=== PATIENT | male | born 1950 | race Caucasian/White ===

== ENCOUNTER → 2018-02-16 | Outpatient (CLI) | payer MEDICARE, OTHER ==
[~2018-02-16] MED LIST: AVODART0.5 MG PO; CRESTOR10 MG PO; HYDROCHLOROTHIA25 MG PO; METOPROLOL SUCC50 MG PO; NIACIN500 M2 PO; TRICOR145 MG PO
== END ==
LOC: RESP 12:37
PROVIDERS: ATTEND Internal Medicine Cardiovascular Disease
DX: Z79.899 Other long term (current) drug therapy (principal)
CPT/HCPCS: 94010; 94727; 94729

== ENCOUNTER 2018-09-12 11:14 | Inpatient (IN) | payer MEDICARE, OTHER ==
[~2018-09-12] VITALS: Ht 172.7 cm; Wt 84.8 kg
[2018-09-12] VITALS (16 sets, daily range): BP systolic 72–127; BP diastolic 57–104
--- OUTSIDE RECORDS SUMMARY | 2018-09-12 11:16 | XMS REPORT ---
Author Author Michael Griffin Organization [employer] Address Unknown Phone Unavailable Care Team Providers Care Roll Forming Machine Set Up Mechanic Name Role Phone Michael Griffin CP Unavailable Allergies No Known Allergies Problems Problem Type Condition Code Onset Dates Condition Status Problem Abnormal stress electrocardiogram test using treadmill R94.39 Active Problem Benign hypertensive heart disease I11.9 Active Problem Palpitations R00.2 Active Problem Alcohol use Z78.9 Active Problem Family history of ischemic heart disease Z82.49 Active Problem Paroxysmal a-fib I48.0 Active Problem Breathlessness on exertion R06.09 Active Problem 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
--- OUTSIDE RECORDS SUMMARY | 2018-09-12 11:16 | XMS REPORT ---
Author Author Michael Griffin Organization [employer] Address Unknown Phone Unavailable Care Team Providers Care Sausage Maker Name Role Phone Michael Griffin CP Unavailable Allergies No Known Allergies Problems Problem Type Condition Code Onset Dates Condition Status Problem Hypercholesterolemia E78.01 Active Problem Tachycardia R00.0 Active Problem Benign hypertensive heart disease I11.9 Active Problem Paroxysmal a-fib I48.0 Active Problem Breathlessness on exertion R06.09 Active Problem Nonrheumatic tricuspid (valve) insufficiency I36.1 Active Problem Alcohol use Z78.9 Active Problem Precordial chest pain R07.2 Active Problem Atherosclerosis of [place] coronary artery of [place] heart without angina pectoris I25.10 Active Problem Abnormal stress electrocardiogram test using treadmill R94.39 Active Assessment Hypercholesterolemia E78.01 Active Assessment Paroxysmal a-fib I48.0 Active Problem Palpitations R00.2 Active Problem Family history of ischemic heart disease Z82.49 Active Medications Medication Code System Code Instructions Start Date End Date Status Dosage Gemfibrozil [facility] [id number] 600 MG Orally Twice a day Active 1 tablet Warfarin Sodium [facility] [id number] 3 MG Orally Once a day Active 1 tablet Results No Known Results Summary Purpose eClinicalWorks Submission
--- OUTSIDE RECORDS SUMMARY | 2018-09-12 11:16 | XMS REPORT ---
Author Author Michael Griffin Organization [employer] Address Unknown Phone Unavailable Care Team Providers Care Multimedia Journalist Name Role Phone Michael Griffin CP Unavailable [...] chest pain R07.2 Active Problem Atherosclerosis of [place] coronary artery of [place] heart without angina pectoris I25.10 Active Problem Abnormal stress electrocardiogram test using treadmill R94.39 Active Assessment Paroxysmal a-fib I48.0 Active Problem Palpitations R00.2 Active Problem Family history of ischemic heart disease Z82.49 Active Medications Medication Code System Code Instructions Start Date End Date Status Dosage Amiodarone HCl [facility] [id number] 200 MG Orally daily Active 1 tablet Results No Known Results Summary Purpose eClinicalWorks Submission
--- OUTSIDE RECORDS SUMMARY | 2018-09-12 11:16 | XMS REPORT ---
Author Author Michael Griffin Organization [employer] Address Unknown Phone Unavailable Care Team Providers Care Speed Winder Name Role Phone Michael Griffin CP Unavailable Allergies No Known Allergies Problems Problem Type Condition Code Onset Dates Condition Status Problem Family history of ischemic heart disease Z82.49 Active Problem Palpitations R00.2 Active Problem Abnormal stress electrocardiogram test using treadmill R94.39 Active Assessment Paroxysmal a-fib I48.0 Active Problem Alcohol use Z78.9 Active Problem Breathlessness on exertion R06.09 Active Problem Atherosclerosis of [place] coronary artery of [place] heart without angina pectoris I25.10 Active Problem Paroxysmal a-fib I48.0 Active Problem Tachycardia R00.0 Active Problem Benign hypertensive heart disease I11.9 Active Problem Hypercholesterolemia E78.01 Active Problem Precordial chest pain R07.2 Active Medications Medication Code System Code Instructions Start Date End Date Status Dosage Eliquis [facility] [id number] 5 MG PO twice a day (bid) May 03, 2017 Active 1 tablet Results No Known Results Summary Purpose eClinicalWorks Submission
--- OUTSIDE RECORDS SUMMARY | 2018-09-12 11:16 | XMS REPORT | Continuity of Care Document ---
Author Author [facility] Interface Address Unknown Phone Unavailable Problems Problem Status Onset Date Classification Date Reported Comments Source PARKINSON DISEASE Active 06/21/2018 [facility] Hypercholesterolemia Active Problem 08/03/2018 Michael Griffin Tachycardia Active Problem 08/03/2018 Michael Griffin Benign hypertensive heart disease Active Problem 08/03/2018 Michael Griffin Paroxysmal a-fib Active Problem 08/03/2018 Michael Griffin Breathlessness on exertion Active Problem 08/03/2018 Michael Griffin Nonrheumatic tricuspid insufficiency Active Problem 08/03/2018 Michael Griffin Alcohol use Active Problem 08/03/2018 Michael Griffin Precordial chest pain Active Problem 08/03/2018 Michael Griffin Atherosclerosis of [place] coronary artery of [place] heart without angina pectoris Active Problem 08/03/2018 Michael Griffin Abnormal stress electrocardiogram test using treadmill Active Problem 08/03/2018 Michael Griffin Palpitations Active Problem 08/03/2018 Michael Griffin Family history of ischemic heart disease Active Problem 08/03/2018 Michael Griffin PARKINSON'S DISEASE Active [facility] Medications Medication Details Route Status Patient Instructions Ordering Provider Order Date Source Eliquis 1 tablet PO Active 5 MG PO twice a day (bid) Gaby 05/03/2017 Michael Griffin Gemfibrozil 1 tablet twice a day orally 90 days PO Active 600 MG PO bid Gaby Griffin Warfarin Sodium 1 tablet Orally Active 3 MG Orally Once a day Gaby Griffin Amiodarone HCl 1 tablet Orally Active 200 MG Orally daily Gaby Griffin Allergies, Adverse Reactions, Alerts Substance Category Reaction Severity Reaction type Status Date Reported Comments Source Immunizations Immunization Date Given Site Status Last Updated Comments Source Results Order Name Results Value Reference Range Date Interpretation Comments Source Brain scan SPECT NM Brain scan SPECT NM EXAM: NM Brain Imaging SPECT DATE: 07/11/2018 at 1303 hours. INDICATION: -Movement disorder, evaluate for Parkinson disease COMPARISON: None. TECHNIQUE: After intravenous administration of 5 mCi of I-123 Ioflupane, delayed SPECT images of the head were obtained at 4 hours post injection. FINDINGS: Decreased tracer uptake in the bilateral posterior putamina is seen. Tracer uptake in the bilateral caudate head is still maintained. The right striatum contributes 49% and the left striatum 51% of the remaining dopamine transporters function. The remainder of tracer distribution in background brain parenchyma is within normal limits. IMPRESSION: The scan findings are suggestive of dysfunction of the dopamine transporters in bilateral posterior putamina, left greater than right, suggestive of Parkinson disease. 07/11/2018 - - This report was dictated by a Director Of Digital Platforms/Fellow/Physician Occupational Therapy Asst. I have personally reviewed the images as well as the interpretation and agree with the findings. Read by: Martin Jernigan MD Resident/Fellow/Physician Occupational Therapy Asst: Martin Jernigan MD Dictated Date/time: 07/11/18 16:30 Electronically Signed by: June Duffy MD 07/11/18 17:02 FINAL REPORT [facility] Vital Signs Vital Sign Value Date Comments Source Encounters Location Location Details Encounter Type Encounter Number Reason For Visit Attending Provider ADM Date DC Date Status Source Procedures Procedure Code Date Perfomer Comments Source
--- OUTSIDE RECORDS SUMMARY | 2018-09-12 11:16 | XMS REPORT ---
Author Author Michael Griffin Organization [employer] Address Unknown Phone Unavailable Care Team Providers Care Telephone Directory Distributor Driver Name Role Phone Michael Griffin CP Unavailable Allergies No Known Allergies Problems Problem Type Condition Code Onset Dates Condition Status Problem Hypercholesterolemia E78.01 Active Problem Tachycardia R00.0 Active Problem Benign hypertensive heart disease I11.9 Active Problem Palpitations R00.2 Active Problem Family history of ischemic heart disease Z82.49 Active Problem Paroxysmal a-fib I48.0 Active Problem Breathlessness on exertion R06.09 Active Problem Nonrheumatic tricuspid (valve) insufficiency I36.1 Active Problem Alcohol use Z78.9 Active Problem Precordial chest pain R07.2 Active Problem Atherosclerosis of [place] coronary artery of [place] heart without angina pectoris I25.10 Active Problem Abnormal stress electrocardiogram test using treadmill R94.39 Active Medications Medication Code System Code Instructions Start Date End Date Status Dosage Gemfibrozil [facility] [id number] 600 MG PO bid Active 1 tablet twice a day orally 90 days Results No Known Results Summary Purpose eClinicalWorks Submission
[2018-09-12] MEDS ORDERED: SODIUM CHLORIDE 0.9% 1000ML 1,000 ML IV STA ×2 (11:49→12:53)
--- NOTE | 2018-09-12 12:00 | NUR ---
Pt placed on O2 via NC, educated regarding A-fib w/RVR & increased O2 demand.
[2018-09-12 12:26] LABS: BASOPHILS % 0.6 % (0.0-1.0); LYMPHOCYTES # (AUTO) 0.3 (1.0-3.2); LYMPHOCYTES % 21.1 % (18.0-39.1); MEAN CORPUSCULAR HEMOGLOBIN 33.3 pg (28-32); MEAN CORPUSCULAR HGB CONC 33.6 g/dL (31-35); MEAN CORPUSCULAR VOLUME 99.3 fL (81-99); MONOCYTES # (AUTO) 0.7 (0.2-0.8); MONOCYTES % 42.9 % (4.4-11.3); NEUTROPHILS # (AUTO) 0.6 (2.1-6.9); NEUTROPHILS % 35.4 % (38.7-80.0); PLATELET COUNT 520 x10e3/uL (140-360); RED BLOOD COUNT 1.41 x10e6/uL (4.3-5.7); RED CELL DISTRIBUTION WIDTH 15.5 % (11.7-14.4)
[2018-09-12] MEDS ORDERED: PANTOPRAZOLE 40 MG 10ML VIAL IV ONE (12:30)
--- NOTE | 2018-09-12 12:35 | NUR ---
MD to bedside for rectal exam. Pt assisted to Lt lateral recumbent, procedure explained, understanding verbalized & agrees. Exam completed by MD. Cortes (-) per Dr. Veliz.
[2018-09-12 12:36] LABS: HEMOGLOBIN 4.7 g/dL (14.0-18.0)
[2018-09-12 12:45] LABS: INR 1.28; PROTHROMBIN TIME 17.1 seconds (11.9-14.5)
[2018-09-12 12:46] LABS: PARTIAL THROMBOPLASTIN TIME 34.8 seconds (23.8-35.5)
[2018-09-12] MEDS ORDERED: CARBIDOPA-LEVO1 EAC1 PO (12:48)
[2018-09-12] MEDS ORDERED: FINASTERIDE5 MG PO (12:48)
[2018-09-12] MEDS ORDERED: ONDANSETRON HCL4 MG PO (12:48)
[2018-09-12] MEDS ORDERED: GEMFIBROZIL600 MG PO (12:48)
[2018-09-12] MEDS ORDERED: PANTOPRAZOLE SO40 MG PO (12:49)
[2018-09-12 12:50] LABS: MAGNESIUM 1.9 MG/DL (1.3-2.1)
--- NOTE | 2018-09-12 12:50 | NUR ---
Updating pt & spouse regarding plan of care, including ICU admission & blood transfusion. Attempting to obtain signature for informed consent, upon discussing blood transfusion, pt denies being informed of risks, benefits & alternative measures for treatment of condition by MD. MD notified of need to inform pt prior to blood transfusion.
[2018-09-12] MEDS ORDERED: WARFARIN SODIUM3 MG PO (12:51)
--- NOTE | 2018-09-12 12:51 | Diagnostic Imaging Report ---
Examination: Single AP view of the chest. COMPARISON: None. INDICATION: Chest pain, unsteady gait DISCUSSION: The lungs are well-inflated. No focal airspace consolidation, pleural effusion, or pneumothorax. Mild prominence of the cardiac shadow and upper mediastinum is likely related to portable, AP technique. No overt pulmonary edema. No acute osseous abnormality. IMPRESSION: No acute cardiopulmonary abnormality. Signed by: Dr. Tom Douglass M.D. on 09/12/2018 12:47 PM
[2018-09-12 12:54] LABS: ALBUMIN 3.5 g/dL (3.5-5.0); ALKALINE PHOSPHATASE 107 IU/L (40-150); ANION GAP 19.9 mmol/L (8-16); BLOOD UREA NITROGEN 21 mg/dL (7-26); BUN/CREATININE RATIO 26 (6-25); CALCIUM 10.2 mg/dL (8.4-10.2); CARBON DIOXIDE 26 mmol/L (22-29); CHLORIDE 94 mmol/L (98-107); CREATINE KINASE 33 IU/L (30-200); CREATININE, SERUM 0.81 mg/dL (0.72-1.25); EST GLOMERULAR FILTRATION RATE > 60 ML/MIN (60-); GLUCOSE 122 mg/dL (74-118); SODIUM 137 mmol/L (136-145)
[2018-09-12 12:56] LABS: ALANINE AMINOTRANSFERASE < 6 IU/L (0-55); POTASSIUM 2.9 mmol/L (3.5-5.1)
[2018-09-12] MEDS ORDERED: VANCOMYCIN 1GM/NS 250 ML 250 ML IV ONE (13:00)
[2018-09-12] MEDS ORDERED: SODIUM CHLORIDE 0.9% 250ML 250 ML IV ONE (13:00)
--- NOTE | 2018-09-12 13:00 | NUR ---
Awaiting MD to speak with pt about blood transfusion.
[2018-09-12] MEDS ORDERED: AMIODARONE HCL 360MG 200 ML IV SCH ×2 (13:15→18:00)
[2018-09-12] MEDS ORDERED: AMIODARONE HCL 150MG 100 ML IV SCH (13:15)
[2018-09-12 13:18] LABS: THYROID STIMULATING HORMONE 1.145 uIU/mL (0.350-4.940)
[2018-09-12 13:21] LABS: BAND NEUTROPHILS % (MANUAL) 4 %; EOSINOPHILS % (MANUAL) 2 % (0-7); LYMPHOCYTES % (MANUAL) 27 % (19-48); MONOCYTES % (MANUAL) 38 % (3.4-9.0); NEUTROPHILS % (MANUAL) 28 % (40-74)
[2018-09-12 13:22] LABS: ANISOCYTOSIS SLIGHT; HYPOCHROMASIA SLIGHT; PLATELET ESTIMATE SLIGHTLY INCREASED; PLATELET MORPHOLOGY COMMENT NORMAL; RBC MORPHOLOGY COMMENT NORMAL
[2018-09-12] MEDS: CEFEPIME 2 GM/NS 0.9% 100 ML 100 ML IV SCH (13:30)
[2018-09-12] MEDS ORDERED: AMIODARONE 900MG 500 ML IV SCH ×2 (13:30→19:30)
[2018-09-12] MEDS ORDERED: POTASSIUM CHLORIDE 20 MEQ TAB CR PO ONE (14:30)
--- NOTE | 2018-09-12 14:30 | NUR ---
Awaiting MD to speak with pt regarding blood transfusion.
[2018-09-12] MEDS ORDERED: ONDANSETRON HCL INJ 2MG/ML 2ML 2 MG/ML VIAL IV PRN (14:45)
[2018-09-12] MEDS: POTASSIUM CHLORIDE 10MEQ/100ML 100 ML IV SCH ×3 (14:48→19:21)
--- NOTE | 2018-09-12 15:45 | NUR ---
Spouse leaving at this time. Reassurance provided. ICU room number & contact information provided.
--- NOTE | 2018-09-12 16:15 | NUR ---
Patient to Room 194; VSS and no acute distress noted. 1640 1st unit PRBCs started.
--- OUTSIDE RECORDS SUMMARY | 2018-09-12 16:26 | XMS REPORT ---
Author Author [facility] Address Unknown Phone Unavailable Care Team Providers Care Marketing Administrator Name Role Phone BLANCA Wilian FISHMAN Unavailable Unavailable Problems This patient has no known problems. Allergies, Adverse Reactions, Alerts This patient has no known allergies or adverse reactions. Medications This patient has no known medications. Results Test Description Test Time Test Comments Text Results Atomic Results Result Comments CHEST SINGLE (PORTABLE) 2018-09-12 12:43:00 [place] [id number] Patient Name: BALTA ABUM MR #: [id number] : 1950 Age/Sex: 68/M Req #: [id number] Adm Physician: Ordered by: SRAVANTHI RIOS MD Report #: [id number] Location: ER Room/Bed: Procedure: [id number] DX/CHEST SINGLE (PORTABLE) Exam Date: 09/12/18 Exam Time: 1110 REPORT STATUS: Signed Examination: Single AP view of the chest. TE RISON: None. INDICATION: Chest pain, unsteady gait DISCUSSION: The lungs are well-inflated. No focal airspace consolidation, pleural effusion, or pneumothorax. Mild prominence of the cardiac shadow and upper mediastinum is likely related to portable, AP technique. No overt pulmonary edema. No acute osseous abnormality. IMPRESSION: No acute cardiopulmonary abnormality. Signed by: Dr. Alba Leon M.D. on 09/12/2018 12:47 PM Dictated By: ALBA LEON MD 124 Transcribed By: LANDON on 09/12/181246 COPY TO: SRAVANTHI RIOS MD
--- NOTE | 2018-09-12 16:30 | NUR ---
Dr Jaime Griffin to bedside; patient alert, oriented, conversing supine in the bed.
[2018-09-12] MEDS ORDERED: DIGOXIN INJ 0.25 MG/ML 2 ML AMP IV NR (16:45)
[2018-09-12] MEDS ORDERED: DIGOXIN 0.25 MG TAB PO NR (16:45)
--- NOTE | 2018-09-12 17:08 | NUR ---
Dr Lui to bedside.
--- NOTE | 2018-09-12 17:12 | Consultation ---
DATE OF CONSULTATION: September 12, 2018 REASON FOR CONSULTATION: Atrial fibrillation. HISTORY: A 68-year-old gentleman with known paroxysmal atrial fibrillation, hypertension, hypercholesterolemia, coronary artery disease, family history of CAD and degenerative joint disease. Patient REPORT NOT COMPLETED, LENGTH 0:29 Job#: [id number] RI
[2018-09-12] MEDS ORDERED: FILGRASTIM 300 MCG/ML VIAL SC SCH (17:30)
[2018-09-12 17:51] LABS: FOLATE 4.3 ng/mL (7.0-15.4)
[2018-09-12] MEDS ORDERED: FILGRASTIM 480 MCG/0.8 ML SYRINGE SQ NR ×2 (18:00→21:00)
[2018-09-12] MEDS ORDERED: FUROSEMIDE INJ 10 MG/ML 2 ML VIAL ONE (18:26)
[2018-09-12] MEDS ORDERED: SODIUM CHLORIDE 0.9% 50ML 50 ML ONE (18:27)
[2018-09-12] MEDS ORDERED: IOPAMIDOL 370 MG/ML 200 ML INFUS..BTL INJ ONE (18:27)
[2018-09-12] MEDS ORDERED: FUROSEMIDE INJ 10 MG/ML 2 ML VIAL IV NR ×2 (18:45→19:00)
--- NOTE | 2018-09-12 19:04 | Diagnostic Imaging Report ---
EXAMINATION: CT of the abdomen and pelvis with contrast. TECHNIQUE: Helical CT images of the abdomen and pelvis were performed from the lung bases to the lesser trochanters after the intravenous administration of 150 cc of Isovue 300 and the oral administration of none. Coronal and sagittal reformatted images were obtained.Dose modulation, iterative reconstruction, and/or weight based adjustment of the mA/kV was utilized to reduce the radiation dose to as low as reasonably achievable. COMPARISON: None. CLINICAL HISTORY:Anemia, syncope DISCUSSION: ABDOMEN/PELVIS: LOWER THORAX:Heart enlarged. HEPATOBILIARY: No focal hepatic lesions. No intra-or extrahepatic biliary ductal dilation. The gallbladder is normal. SPLEEN: No splenomegaly. PANCREAS: No focal masses or ductal dilatation. ADRENALS: No adrenal nodules. KIDNEYS/URETERS: No hydronephrosis, stones, or solid mass lesions. PELVIC ORGANS/BLADDER: The bladder is normal. PERITONEUM/RETROPERITONEUM: No free air or fluid. LYMPH NODES: No intra-abdominal, retroperitoneal, pelvic or inguinal lymphadenopathy. VESSELS: Vascular calcifications. GI TRACT: Colonic diverticulosis without inflammatory change adjacent to the sigmoid. BONES AND SOFT TISSUE: No bony destructive lesions. No soft tissue abnormalities. IMPRESSION: Acute uncomplicated sigmoid diverticulitis Signed by: Dr. Faustino Kauffman M.D. on 09/12/2018 7:01 PM
--- NOTE | 2018-09-12 19:30 | NUR ---
Received patient alert , on the second unit of blood, pending 1 more unit. on amiodarone drip and potassium chloride supplementation. Vitals stable
[2018-09-12] MEDS: METOPROLOL TARTRATE 25 MG TAB PO SCH (19:31)
--- NOTE | 2018-09-12 20:18 | NUR ---
Bedside report to HANNAH Gibson.
--- NOTE | 2018-09-12 20:49 | Consultation ---
DATE OF CONSULTATION: September 12, 2018 CARDIAC CONSULTATION REASON FOR THE CONSULTATION: Atrial fibrillation. HISTORY: [id number] gentleman who is known with paroxysmal atrial fibrillation, hypertension, hypercholesterolemia, coronary artery disease, family history of CAD, and degenerative joint disease. Patient since May 2017 on warfarin, amiodarone, and beta kayla. Subsequently, he was seen by EP. We discussed Watchman device with him several times. Regardless, patient is maintained on medical therapy and he seems to be doing well. Regarding his coronary artery disease, he denied having any active cardiovascular system complaints. He was doing well on his treatment and his medication. He came to our office for evaluation and he was relatively stable, his INR was therapeutic, and he denied having any hematemesis, any melena. Patient advised to keep followup with his PCP and to have his labs drawn since we did not have lab on him for sometime. In our office, we noted he is probably a little bit pale. He is supposed to see his doctor and have his lab drawn. However, patient complained of nausea for the last couple of weeks and poor appetite and he was worried about it, he was seen by Dr. Kinney where he scheduled him for EGD today. Today, patient felt not easy, very weak, and he felt palpitation. He came to the emergency room. He was in atrial fibrillation with fast ventricular response. His lab work showed WBC of only 1.6, hemoglobin of 4.7, hematocrit 14% and monocyte of 43%. He was admitted to intensive care unit. Cardiac consultation is obtained. I visited the patient. His main symptoms were a little bit nauseated, no melena, no hematemesis, no energy, and generalized weakness. HOME MEDICATIONS: Patient is on Crestor 40 mg a day, gemfibrozil 600 mg twice a day, niacin 1500 mg daily, metoprolol succinate 50 mg a day, finasteride 5 mg a day, Protonix 40 mg a day, topiramate 25 mg twice a day, Sinemet 25 per 100 one tablet at bedtime. ALLERGIES: NONE. PAST MEDICAL HISTORY: 1. Paroxysmal atrial fibrillation, diagnosed in 2016. 2. Cardiac catheterization in August 2015 with moderate LAD, OM, and right coronary artery. FFR was negative. 3. Hypertension. 4. Hypercholesteremia. 5. Borderline diabetes mellitus. 6. Diverticulosis. 7. Prostate problem. 8. Degenerative joint disease of the left shoulder. 9. Back pain. 10. Paroxysmal atrial fibrillation, latest documented atrial fibrillation in May 2017. 11. Right eye macular degeneration. 12. Parkinson's disease. 13. Tonsillectomy in 1950. SOCIAL HISTORY: He is . He stopped smoking many years ago. He drinks 2 to 3 drinks per day. REVIEW OF SYSTEMS: GENERAL: Weakness, failure to thrive, no energy. HEENT: Occasional headache, decreased right eye vision secondary to macular degeneration, decreased hearing in the left ear. PULMONARY: Easy fatigability and shortness of breath on exertion. CARDIAC: No angina. Weakness, debility. GI: Occasional heartburn, nausea. No hematemesis, no melena. HEMATOLOGY: No easy bruising or bleeding. : No hematuria, no dysuria. MUSCULOSKELETAL: Left leg ache and pain. NEUROLOGICAL: No headache, tremors. No localized weakness. FAMILY HISTORY: Mother of car accident at age 49. Father in his 90s, he had bypass surgery at age 62. Strong family history of coronary artery disease with several brothers having heart disease in their 50s and 60s. PHYSICAL EXAMINATION: GENERAL: Well-built gentleman, chronically ill. He looks very pale. VITAL SIGNS: Height of 5 feet 8 inches. Weight of 186 pounds. Blood pressure 130/80. Heart rate of 70. Respiratory rate of 18. HEENT: Patient looks very pale. NECK: No elevation of jugular venous pulsation. CHEST: Clear to auscultation and percussion. HEART: Irregularly irregular rate of atrial fibrillation with fast ventricular response. PMI in fifth left intercostal space. Normal first and second heart sounds. ABDOMEN: Soft with no organomegaly. EXTREMITIES: No cyanosis, no clubbing, no edema. NEUROLOGICAL: Awake, alert, oriented. LAB DATA: EKG showing atrial fibrillation with rapid ventricular response. INR of only 1.3. White blood cell count of 1.6, hemoglobin 4.7, hematocrit 14%. Differential monocyte at 43%. IMPRESSION AND PLAN: 1. Anemia. 2. Paroxysmal atrial fibrillation. 3. Coronary artery disease. 4. Hypertension. 5. Hypercholesteremia. Cardiac-salazar, my recommendation will be as follows: 1. Patient started on amiodarone intravenously in the ER, which will continue. 2. Adding beta kayla to his medical regimen. 3. Observing his vital signs and volume status. 4. We discussed the case with Dr. Mcallister. Will consult hematology to evaluate his anemia. Case discussed with the patient and explained, discussed with the staff. Patient seen in emergency room. Job#: [id number]
[2018-09-12] MEDS: FINASTERIDE 5 MG TAB PO SCH (21:00)
[2018-09-12] MEDS: CARBIDOPA/LEVODOPA 25/100 TAB PO SCH (21:00)
[2018-09-12] MEDS ORDERED: SODIUM CHLORIDE 0.9% 250ML 250 ML ONE (21:19)
[2018-09-13] VITALS (31 sets, daily range): BP systolic 93–136; BP diastolic 55–102
[2018-09-13] MEDS: METOPROLOL TARTRATE 25 MG TAB PO SCH ×2 (01:00→06:00)
--- NOTE | 2018-09-13 01:01 | NUR ---
Received patient in bed, AAO, vitals stable, blood pressures still above 170 despite hydralazine. No complaints raised Addendum: 09/13/18 at 0103 by VALERIE JIMÉNEZ RN notes for 1929 Addendum: 09/13/18 at 0104 by VALERIE JIMÉNEZ RN notes written on the wrong patient
[2018-09-13] MEDS ORDERED: SODIUM CHLORIDE 0.9% 0 ML ONE (01:23)
[2018-09-13] MEDS: CEFEPIME 2 GM/NS 0.9% 100 ML 100 ML IV SCH ×2 (01:30→13:46)
[2018-09-13 03:33] LABS: CREATINE KINASE MB 0.7 ng/mL (0-5.0)
[2018-09-13 04:54] LABS: EOSINOPHILS % 1.3 % (0.0-6.0); HEMATOCRIT 22.9 % (38.2-49.6); HEMOGLOBIN 7.8 g/dL (14.0-18.0); LYMPHOCYTES # (AUTO) 0.5 (1.0-3.2); LYMPHOCYTES % 14.8 % (18.0-39.1); MEAN CORPUSCULAR HEMOGLOBIN 31.1 pg (28-32); MEAN CORPUSCULAR HGB CONC 34.1 g/dL (31-35); MEAN CORPUSCULAR VOLUME 91.2 fL (81-99); MONOCYTES # (AUTO) 1.1 (0.2-0.8); MONOCYTES % 37.5 % (4.4-11.3); NEUTROPHILS # (AUTO) 1.4 (2.1-6.9); NEUTROPHILS % 44.4 % (38.7-80.0); PLATELET COUNT 350 x10e3/uL (140-360); RED BLOOD COUNT 2.51 x10e6/uL (4.3-5.7); RED CELL DISTRIBUTION WIDTH 18.3 % (11.7-14.4)
[2018-09-13 05:05] LABS: ALANINE AMINOTRANSFERASE 6 IU/L (0-55); ALBUMIN 2.9 g/dL (3.5-5.0); ALKALINE PHOSPHATASE 118 IU/L (40-150); ANION GAP 17.2 mmol/L (8-16); BLOOD UREA NITROGEN 18 mg/dL (7-26); BUN/CREATININE RATIO 24 (6-25); CALCIUM 9.1 mg/dL (8.4-10.2); CARBON DIOXIDE 23 mmol/L (22-29); CHLORIDE 98 mmol/L (98-107); CHOL/HDL RATIO 2.8 (3.9-4.7); CHOLESTEROL 95 MD/DL (0-199); CREATININE, SERUM 0.74 mg/dL (0.72-1.25); EST GLOMERULAR FILTRATION RATE > 60 ML/MIN (60-); GLUCOSE 103 mg/dL (74-118); HDL CHOLESTEROL 34 MG/DL (40-60); LDL CHOLESTEROL 29 MG/DL (60-130); POTASSIUM 3.2 mmol/L (3.5-5.1); SODIUM 135 mmol/L (136-145); TRIGLYCERIDES 159 MG/DL (0-149)
--- NOTE | 2018-09-13 07:00 | NUR ---
Potassium 3.2, received orders from Dr Mcallister to give potassium
--- NOTE | 2018-09-13 07:00 | NUR ---
bedside report recvd. assessment completed and recorded. vss and recorded. pt verbalizes understanding and consent to current poc.
--- NOTE | 2018-09-13 07:05 | NUR ---
Patient handed over stable
[2018-09-13] MEDS ORDERED: POTASSIUM CHLORIDE 20MEQ/100ML 200 ML IV ONE (07:15)
--- NOTE | 2018-09-13 07:30 | History and Physical ---
PRIMARY CARE PHYSICIAN: Dr. Yates CHIEF COMPLAINT: Leg weakness, dizziness and fatigue. HISTORY OF PRESENT ILLNESS: This is a 68-year-old man with a history of atrial fibrillation, on anticoagulation, who held his anticoagulants in the last 5 days for planned GI endoscopy. Also, his amiodarone had been discontinued. Now, the patient is feeling quite weak, dizzy and came to the hospital. Was found to have severe anemia, as well as pancytopenia. Patient was found to have rapid ventricular rate and in AFib. He is admitted for further evaluation and management. PAST MEDICAL HISTORY: Atrial fibrillation, Parkinson disease, BPH, peripheral edema, hypertriglyceridemia, diverticulosis, former cigarette smoker. PAST SURGICAL HISTORY: None. ALLERGIES: PER ELECTRONIC MEDICAL RECORD. FAMILY/SOCIAL HISTORY: Patient is . No cigarettes or illicits. He drinks about 1 alcoholic beverage per day. Family history of heart disease, premature coronary artery disease and myocardial infarction in his brother at age 21. Patient has 5 children. He quit cigarettes in 1994. 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 MEDICATIONS: Per electronic medical record. REVIEW OF SYSTEMS: Denies any fever, chills, sweats, nausea, vomiting, diarrhea, headache, chest pain, shortness of breath, back pain, skin rash, vision changes. PHYSICAL EXAMINATION VITAL SIGNS: Have been reviewed. GENERAL: A tired-appearing man resting in bed. HEENT: Anicteric. CARDIOVASCULAR: Normal S1 and S2. He has an irregular heart rate. LUNGS: Moderate breath sounds. ABDOMEN: Soft, nontender and nondistended. EXTREMITIES: He has trace edema. SKIN: Dry. PSYCHIATRIC: Flat affect. NEUROLOGICAL: Alert and oriented times 3. Moving all extremities. LABS: Reviewed. MEDICATIONS: Reviewed. ASSESSMENT: This is a 68-year-old man with: 1. Severe anemia and leukopenia. 2. Hypokalemia. 3. Hyperbilirubinemia. 4. Sigmoid diverticulitis. 5. Atrial fibrillation with rapid ventricular response. 6. Parkinson disease. 7. BPH. 8. Former smoker. 9. Hypertension. 10. Hyperlipidemia. PLAN 1. He is status post 3 units of packed red blood cells. 2. He is status post Neupogen. 3. Continue prophylaxis with cefepime in the setting of neutropenia. 4. He is on amiodarone for atrial fibrillation and also on metoprolol. 5. He did receive a dose of vancomycin, and his potassium was also replaced. 6. All his cell counts have started to improve. 7. Replace potassium this morning again. 8. Follow up labs and recommendations. 9. Monitor closely in the ICU. 10. Prophylaxis. Will use SCD and Pepcid. Critical care time more than 35 minutes. Job#: [id number] RI
[2018-09-13 07:57] LABS: BAND NEUTROPHILS % (MANUAL) 5 %; EOSINOPHILS % (MANUAL) 3 % (0-7); LYMPHOCYTES % (MANUAL) 14 % (19-48); MONOCYTES % (MANUAL) 38 % (3.4-9.0); NEUTROPHILS % (MANUAL) 37 % (40-74); NUCLEATED RED BLOOD CELLS 2
[2018-09-13 07:58] LABS: ANISOCYTOSIS MODERATE; HYPOCHROMASIA SLIGHT; MICROCYTOSIS SLIGHT; PLATELET ESTIMATE ADEQUATE; PLATELET MORPHOLOGY COMMENT NORMAL; RBC MORPHOLOGY COMMENT ABNORMAL
[2018-09-13] MEDS: CARBIDOPA/LEVODOPA 25/100 TAB PO SCH ×3 (08:12→21:09)
[2018-09-13] MEDS: FAMOTIDINE 20 MG TAB PO SCH (08:12)
--- NOTE | 2018-09-13 08:32 | NUR ---
rebecca randall, updated on pt status, orders recvd and being completed.
[2018-09-13] MEDS: METOPROLOL SUCCINATE 50 MG TAB XL PO SCH (09:00)
[2018-09-13] MEDS ORDERED: GEMFIBROZIL 600 MG TAB PO SCH (09:00)
--- NOTE | 2018-09-13 09:00 | NUR ---
bedside bone biopsy completed. tolerates well.
[2018-09-13] MEDS: AMIODARONE HCL 200 MG TAB PO SCH ×2 (10:48→17:28)
[2018-09-13] MEDS: DOCUSATE SODIUM 100 MG CAP PO SCH ×2 (10:48→17:28)
--- NOTE | 2018-09-13 11:29 | NUR ---
bedside report given to oncoming nurse
[2018-09-13 11:44] LABS: CREATINE KINASE MB 0.8 ng/mL (0-5.0)
--- NOTE | 2018-09-13 14:32 | NUR ---
Nutrition Screen Note RD Recommendation for Physician: -Continue cardiac diet as ordered Plan of Care: RD following, monitoring for tolerance and adequacy Nutrition reason for involvement: RN consult no reason stated Primary Diagnose(s): Anemia PMH: Atrial fibrillation, Parkinson disease, BPH, peripheral edema, hypertriglyceridemia, diverticulosis, former cigarette smoker. Ht: 68in Wt: 185lb BMI: 28.1kg/m2 IBW: 154lb RD Assessment: (09/13) Chart reviewed. Labs and meds reviewed. 68yo M, who was admitted for anemia. 4 units of blood were transfused. Pending bone marrow biopsy today. K was repleted. Visited pt in the room. Pt reported decreased meal intake due to nausea and ~10lbs weight loss within the last 2 months. No sign of muscle/ fat loss upon NFPA. Appetite has improved since admission. Pt was able to finish >50% of his meal for lunch today. Pt was not interested in any ONS and happy that he has lost weight. LBM 09/11, laxative was given. No chewing or swallowing difficulty reported. Will continue to monitor and follow. Current Diet: cardiac diet Malnutrition Evaluation (09/13/2018) The patient does not meet criteria for a specified degree of malnutrition at this time. Will re-evaluate at follow-up as appropriate. Diet Education Needs Assessment: Diet education not indicated. Nutrition Care Level: low Signed: Dayanna Lorenz, MS, RD, LD
--- NOTE | 2018-09-13 14:46 | NUR ---
CASE MANAGEMENT INITIAL ASSESSMENT Backend Java Developer to bedside to discuss plan of care with patient/family. CM/SW role and care transitions discussed. Anticipated discharge plan discussed along with duration of care. CM/SW discussed patients right to make decisions in care. CM/SW work hours given. Patient lives: HOME IN [place], [place] W Admit/Transfer: ER W C/O DIZZINESS AND COULD NOT WALK Hospital/ER visits since last admit: LAST ADM 3 YRS AGO POA/Emergency contact: HUMBERTO BAUM / @ [phone] Current/Previous Home Health: NONE PCP/Follow-up Care: ALBA JULIEN MD Current/Previous DME: NONE Other Services: NONE Employment Status: RETIRED / WORKED IN [employer] Areas of Concerns: NONE Referral Needs: NONE AT THIS TIME Education Needs: EDUCATED AND PT ABOUT HOME HEALTH, DISCUSSED [facility] PART A AND B. IMM/THOMSON given and signed (if applicable): SIGNED 09/12/18 Goal for discharge: RETURN HOME CM/SW left business card at the bedside with contact information. Name and number was also written on the patients whiteboard. Patient verbalized understanding of discussion. CM will follow-up with ongoing discharge and transition of care needs.
[2018-09-13 15:23] LABS: FERRITIN 2983.48 ng/mL (21.81-274.66)
--- NOTE | 2018-09-13 15:48 | Consultation ---
DATE OF CONSULTATION: September 13, 2018 GASTROENTEROLOGY CONSULTATION CONSULTING PHYSICIAN: Bahman Veliz MD REASON FOR CONSULTATION: Acute anemia. HISTORY OF PRESENT ILLNESS: A 68-year-old very pleasant white male with a past medical history of atrial fibrillation, on warfarin, who also has developed acute progressive anemia in the last 1 month. He was seen by my associate, Dr. Kinney. He was supposed to have a upper endoscopy yesterday. However, he continued to feel very weak, lethargic, tired, was easily getting winded with minimal exertion. Instead of getting the upper endoscopy yesterday, he decided to come to the emergency room. Here his hemoglobin was noted at 4.7. He was subsequently admitted in the ICU. He received 3 units of packed red blood cells with which hemoglobin has gone up to 7.8. Patient's MCV on initial blood draw was 99.3. He reports no episode of hematemesis, melena, hematochezia, epistaxis, hematuria, or any hemoptysis. Patient has not seen any dark colored stool in the recent or remote past. No prior history of peptic ulcer disease. He seldom takes any NSAIDs. His warfarin was withheld due to scheduled endoscopy yesterday. INR was noted at 1.28 here. The patient has been seen by hematology service. He had undergone bone marrow biopsy today. REVIEW OF SYSTEMS: A 12-point system reviewed. Symptomatology is limited as per HPI. PAST MEDICAL HISTORY: Atrial fibrillation, Parkinson disease, benign prostatic hypertrophy, hypertriglyceridemia, diverticulosis. PAST SURGICAL HISTORY: None. SOCIAL HISTORY: Social drinker. He quit smoking in 1994. . Lives with his . FAMILY HISTORY: Positive for coronary artery disease. Negative for any TRAILER CHIEF cancer. ALLERGIES: NO KNOWN DRUG ALLERGIES. HOME MEDICATIONS: Carbidopa/levodopa, finasteride, gemfibrozil, metoprolol, niacin, Zofran, pantoprazole, warfarin. INPATIENT MEDICATIONS: List reviewed as per SEP. PHYSICAL EXAMINATION VITAL SIGNS: Temperature 98.1, pulse 89, respiration 18, blood pressure 102/64, oxygen saturation 100% on room air. GENERAL: Gross pallor. Not in any acute distress. Oral mucosa is moist. Anicteric sclerae. NECK: No neck or axillary adenopathy. CV: S1 and S2 irregularly irregular with a 3/6 flow murmur at the apex. LUNGS: Bilaterally grossly clear. ABDOMEN: Soft, nondistended and nontender. No palpable mass or hernia. Positive bowel sounds. EXTREMITIES: Bilateral trace pitting leg edema. LABS: WBC 3.04, hemoglobin 7.8 (has come up from 4.7), hematocrit 22.9, MCV 91.2, and platelet count 350,000. Sodium 135, potassium 3.2, chloride 98, bicarbonate 23, BUN 18, creatinine 0.74. Liver enzymes showed a total bilirubin of 1.3, AST 23, ALT 6, alkaline phosphatase 118. PT 17.[address] of the abdomen and pelvis with contrast showed acute uncomplicated sigmoid diverticulitis. IMPRESSION 1. Acute symptomatic normocytic anemia: No evidence of any gross gastrointestinal bleeding. On warfarin for antral fibrillation. INR subtherapeutic. He has had 3 colonoscopies in his life so far. Last colonoscopy was done in 2017. Patient is not able to recall the finding of last colonoscopy. 2. Acute radiological sigmoid diverticulitis: On exam, the patient does not have any elicitable left lower quadrant tenderness. PLAN: Check his stool for hemoccult blood. Iron profile in the initial blood draw. This can be added in the blood drawn on admission. Patient has already received blood transfusion. Therefore, performing iron profile study now will be erroneous. Hematology is following the patient. Patient most likely having normocytic anemia. Do not suspect GI source of blood loss contributing to the anemia. Warfarin can be resumed from GI standpoint. I thank Dr. Veliz for allowing me to participate in the care of this patient. Job#: [id number] SHARLENE
[2018-09-13] MEDS: FINASTERIDE 5 MG TAB PO SCH (21:09)
[2018-09-14] VITALS (11 sets, daily range): BP systolic 93–118; BP diastolic 59–81
[2018-09-14] MEDS: CEFEPIME 2 GM/NS 0.9% 100 ML 100 ML IV SCH ×2 (01:47→12:26)
[2018-09-14] MEDS: METOPROLOL SUCCINATE 50 MG TAB XL PO SCH (02:43)
[2018-09-14 05:00] LABS: BASOPHILS % 1.2 % (0.0-1.0); EOSINOPHILS # (AUTO) 0.1 (0.0-0.4); EOSINOPHILS % 3.3 % (0.0-6.0); HEMATOCRIT 22.8 % (38.2-49.6); HEMOGLOBIN 7.6 g/dL (14.0-18.0); LYMPHOCYTES # (AUTO) 0.6 (1.0-3.2); LYMPHOCYTES % 18.1 % (18.0-39.1); MEAN CORPUSCULAR HEMOGLOBIN 30.6 pg (28-32); MEAN CORPUSCULAR HGB CONC 33.3 g/dL (31-35); MEAN CORPUSCULAR VOLUME 91.9 fL (81-99); MONOCYTES # (AUTO) 1.3 (0.2-0.8); MONOCYTES % 38.4 % (4.4-11.3); NEUTROPHILS # (AUTO) 1.3 (2.1-6.9); NEUTROPHILS % 38.7 % (38.7-80.0); PLATELET COUNT 299 x10e3/uL (140-360); RED BLOOD COUNT 2.48 x10e6/uL (4.3-5.7); RED CELL DISTRIBUTION WIDTH 18.6 % (11.7-14.4)
[2018-09-14 05:23] LABS: ALANINE AMINOTRANSFERASE 9 IU/L (0-55); ALBUMIN 2.8 g/dL (3.5-5.0); ALKALINE PHOSPHATASE 112 IU/L (40-150); ANION GAP 14.2 mmol/L (8-16); BLOOD UREA NITROGEN 15 mg/dL (7-26); BUN/CREATININE RATIO 24 (6-25); CALCIUM 9.2 mg/dL (8.4-10.2); CARBON DIOXIDE 25 mmol/L (22-29); CHLORIDE 100 mmol/L (98-107); CREATININE, SERUM 0.62 mg/dL (0.72-1.25); EST GLOMERULAR FILTRATION RATE > 60 ML/MIN (60-); GLUCOSE 87 mg/dL (74-118); MAGNESIUM 1.4 MG/DL (1.3-2.1); POTASSIUM 3.2 mmol/L (3.5-5.1); SODIUM 136 mmol/L (136-145)
--- NOTE | 2018-09-14 06:17 | NUR ---
Called MD Modesto Mcallister to notify of labs, stated that he will be in ICU shortly.
[2018-09-14 06:18] LABS: CLARITY,URINE CLEAR (CLEAR); COLOR,URINE YELLOW (YELLOW)
[2018-09-14 06:19] LABS: KETONES,URINE NEGATIVE (NEGATIVE); LEUKOCYTE ESTERASE ,URINE NEGATIVE (NEGATIVE); NITRITE,URINE NEGATIVE (NEGATIVE); PROTEIN,URINE DIPSTICK 1+ (NEGATIVE)
[2018-09-14 06:20] LABS: BILIRUBIN,URINE NEGATIVE (NEGATIVE); URINE UROBILINOGEN 1 mg/dL (0.2 - 1)
--- NOTE | 2018-09-14 06:29 | NUR ---
REVIEW OF SYSTEMS: Denies any fever, chills, sweats, nausea, vomiting, diarrhea, headache, chest pain, shortness of breath, back pain, skin rash, vision changes. PHYSICAL EXAMINATION VITAL SIGNS: Have been reviewed. GENERAL: A tired-appearing man resting in bed. HEENT: Anicteric. CARDIOVASCULAR: Normal S1 and S2. He has an irregular heart rate. LUNGS: Moderate breath sounds. ABDOMEN: Soft, nontender and nondistended. EXTREMITIES: He has trace edema. SKIN: Dry. PSYCHIATRIC: Flat affect. NEUROLOGICAL: Alert and oriented times 3. Moving all extremities. LABS: Reviewed. MEDICATIONS: Reviewed. ASSESSMENT: This is a 68-year-old man with: 1. Severe anemia and leukopenia. 2. Hypokalemia. 3. Hyperbilirubinemia. 4. Sigmoid diverticulitis. 5. Atrial fibrillation with rapid ventricular response. 6. Parkinson disease. 7. BPH. 8. Former smoker. 9. Hypertension. 10. Hyperlipidemia. PLAN 1. He is status post 3 units of packed red blood cells. 2. He is status post Neupogen. 3. Continue prophylaxis with cefepime in the setting of neutropenia. 4. He is on amiodarone for atrial fibrillation and also on metoprolol. 5. He did receive a dose of vancomycin, and his potassium was also replaced. 6. All his cell counts have started to improve. 7. Replace potassium this morning again. 8. Follow up labs and recommendations. 9. Monitor closely in the ICU. 10. Prophylaxis. Will use SCD and Pepcid. Critical care time more than 35 minutes. 09/14 cont AV kayla; f/u blood counts; Sean Mcallister MD, PhD.
[2018-09-14] MEDS ORDERED: POTASSIUM CHLORIDE 20 MEQ TAB CR PO STA ×2 (06:30→06:42)
[2018-09-14 06:31] LABS: BACTERIA,URINE RARE /HPF; RBC,URINE 0-5 /HPF (0-5); WBC,URINE (MAN) 0-5 /HPF (0-5)
[2018-09-14 06:32] LABS: EPITHELIAL CELLS,URINE RARE /LPF; TRANSITIONAL EPI CELLS,URINE RARE
[2018-09-14] MEDS: MAGNESIUM OXIDE 400 MG TAB PO SCH ×3 (06:51→16:21)
[2018-09-14] MEDS: DOCUSATE SODIUM 100 MG CAP PO SCH ×2 (08:11→16:21)
[2018-09-14] MEDS: CARBIDOPA/LEVODOPA 25/100 TAB PO SCH ×3 (08:12→21:08)
[2018-09-14] MEDS: AMIODARONE HCL 200 MG TAB PO SCH ×2 (08:12→16:01)
[2018-09-14] MEDS: FAMOTIDINE 20 MG TAB PO SCH (08:12)
[2018-09-14 10:32] LABS: BAND NEUTROPHILS % (MANUAL) 6 %; EOSINOPHILS % (MANUAL) 1 % (0-7); LYMPHOCYTES % (MANUAL) 26 % (19-48); MONOCYTES % (MANUAL) 39 % (3.4-9.0); NEUTROPHILS % (MANUAL) 28 % (40-74)
[2018-09-14 10:34] LABS: ANISOCYTOSIS SLIGHT; PLATELET ESTIMATE ADEQUATE; PLATELET MORPHOLOGY COMMENT NORMAL; RBC MORPHOLOGY COMMENT NORMAL
--- NOTE | 2018-09-14 13:15 | NUR ---
patients INR 1.2, ok to start coumadin 2.5 mg po today and repeat INR in am per
[2018-09-14] MEDS: WARFARIN SOD 2.5 MG TAB PO SCH (16:01)
[2018-09-14] MEDS ORDERED: DOCUSATE SODIUM 100 MG CAP PO PRN (16:30)
[2018-09-14] MEDS ORDERED: WARFARIN SOD 2.5 MG TAB PO SCH (17:00)
--- NOTE | 2018-09-14 19:55 | NUR ---
PATIENT RESTING IN BED WITHOUT RESPIRATORY DISTRESS, HE DENIES PAIN. 2+ PITTING EDEMA TO THE LEFT LEG, ATTEMPTED TO ELEVATE THE LEG ON PILLOW BUT THE PATIENT REFUSED THE PILLOW. SKIN IS PALE, NO ACTIVE BLEEDING OBSERVED. CALL LIGHT WITHIN EASY REACH, INSTRUCTED TO CALL FOR ASSISTANCE NEEDED.
[2018-09-14] MEDS: FINASTERIDE 5 MG TAB PO SCH (21:08)
[2018-09-15] VITALS (7 sets, daily range): BP systolic 96–113; BP diastolic 64–84
--- NOTE | 2018-09-15 00:13 | NUR ---
PATIENT IS ASLEEP, HE'S EASY TO AROUSE. HE DENIES PAIN, NO RESPIRATORY DISTRESS OBSERVED. CALL LIGHT WITHIN EASY REACH, INSTRUCTED TO CALL FOR ASSISTANCE NEEDED.
[2018-09-15] MEDS: CEFEPIME 2 GM/NS 0.9% 100 ML 100 ML IV SCH ×2 (01:45→17:16)
--- NOTE | 2018-09-15 04:50 | NUR ---
PATIENT CONDITION REMAINS STABLE WITHOUT DISTRESS, HE DENIES PAIN. CALL LIGHT WITHIN EASY REACH, INSTRUCTED TO CALL FOR ASSISTANCE NEEDED.
[2018-09-15 05:17] LABS: INR 1.05; PROTHROMBIN TIME 14.7 seconds (11.9-14.5)
[2018-09-15 06:26] LABS: BASOPHILS # (AUTO) 0.1 (0.0-0.1); EOSINOPHILS # (AUTO) 0.1 (0.0-0.4); EOSINOPHILS % 4.3 % (0.0-6.0); HEMATOCRIT 23.7 % (38.2-49.6); HEMOGLOBIN 7.7 g/dL (14.0-18.0); LYMPHOCYTES # (AUTO) 0.8 (1.0-3.2); MEAN CORPUSCULAR HEMOGLOBIN 30.7 pg (28-32); MEAN CORPUSCULAR HGB CONC 32.5 g/dL (31-35); MEAN CORPUSCULAR VOLUME 94.4 fL (81-99); MONOCYTES # (AUTO) 1.3 (0.2-0.8); MONOCYTES % 41.7 % (4.4-11.3); NEUTROPHILS # (AUTO) 0.7 (2.1-6.9); NEUTROPHILS % 23.3 % (38.7-80.0); PLATELET COUNT 382 x10e3/uL (140-360); RED BLOOD COUNT 2.51 x10e6/uL (4.3-5.7); RED CELL DISTRIBUTION WIDTH 18.2 % (11.7-14.4)
[2018-09-15 06:33] LABS: ANION GAP 14.7 mmol/L (8-16); BLOOD UREA NITROGEN 16 mg/dL (7-26); BUN/CREATININE RATIO 25 (6-25); CALCIUM 9.1 mg/dL (8.4-10.2); CARBON DIOXIDE 25 mmol/L (22-29); CHLORIDE 104 mmol/L (98-107); CREATININE, SERUM 0.63 mg/dL (0.72-1.25); EST GLOMERULAR FILTRATION RATE > 60 ML/MIN (60-); GLUCOSE 89 mg/dL (74-118); MAGNESIUM 1.5 MG/DL (1.3-2.1); POTASSIUM 3.7 mmol/L (3.5-5.1); SODIUM 140 mmol/L (136-145)
[2018-09-15 07:45] LABS: ANISOCYTOSIS SLIGHT; EOSINOPHILS % (MANUAL) 1 % (0-7); LYMPHOCYTES % (MANUAL) 33 % (19-48); MONOCYTES % (MANUAL) 38 % (3.4-9.0); NEUTROPHILS % (MANUAL) 28 % (40-74); NUCLEATED RED BLOOD CELLS 2; PLATELET ESTIMATE SLIGHTLY INCREASED; PLATELET MORPHOLOGY COMMENT NORMAL; RBC MORPHOLOGY COMMENT NORMAL
--- NOTE | 2018-09-15 09:03 | NUR ---
EDUCATED ABOUT IMM, SIGNED, FILED IN CHART, WITH COPY LEFT WITH FAMILY AT BEDSIDE.
[2018-09-15] MEDS: AMIODARONE HCL 200 MG TAB PO SCH (10:19)
[2018-09-15] MEDS: FAMOTIDINE 20 MG TAB PO SCH (10:19)
[2018-09-15] MEDS: MAGNESIUM OXIDE 400 MG TAB PO SCH ×2 (10:19→17:16)
[2018-09-15] MEDS: CARBIDOPA/LEVODOPA 25/100 TAB PO SCH ×3 (10:20→23:35)
[2018-09-15] MEDS: METOPROLOL SUCCINATE 50 MG TAB XL PO SCH (10:20)
[2018-09-15] MEDS ORDERED: FUROSEMIDE INJ 10 MG/ML 2 ML VIAL IV ONE (13:15)
[2018-09-15] MEDS ORDERED: SODIUM CHLORIDE 0.9% 250ML 250 ML IV ONE (13:15)
[2018-09-15] MEDS: FINASTERIDE 5 MG TAB PO SCH (23:35)
[2018-09-16] VITALS (8 sets, daily range): BP systolic 105–128; BP diastolic 68–89
[2018-09-16] MEDS: CEFEPIME 2 GM/NS 0.9% 100 ML 100 ML IV SCH ×2 (05:17→16:26)
[2018-09-16 05:43] LABS: BASOPHILS # (AUTO) 0.1 (0.0-0.1); BASOPHILS % 2.3 % (0.0-1.0); EOSINOPHILS # (AUTO) 0.2 (0.0-0.4); EOSINOPHILS % 6.8 % (0.0-6.0); HEMATOCRIT 29.3 % (38.2-49.6); HEMOGLOBIN 9.9 g/dL (14.0-18.0); LYMPHOCYTES # (AUTO) 0.8 (1.0-3.2); LYMPHOCYTES % 36.1 % (18.0-39.1); MEAN CORPUSCULAR HEMOGLOBIN 30.7 pg (28-32); MEAN CORPUSCULAR HGB CONC 33.8 g/dL (31-35); MONOCYTES # (AUTO) 0.7 (0.2-0.8); MONOCYTES % 32.9 % (4.4-11.3); NEUTROPHILS # (AUTO) 0.5 (2.1-6.9); NEUTROPHILS % 21.4 % (38.7-80.0); PLATELET COUNT 292 x10e3/uL (140-360); RED BLOOD COUNT 3.22 x10e6/uL (4.3-5.7); RED CELL DISTRIBUTION WIDTH 16.7 % (11.7-14.4)
[2018-09-16 06:01] LABS: INR 1.05; PROTHROMBIN TIME 14.6 seconds (11.9-14.5)
[2018-09-16 06:19] LABS: ALANINE AMINOTRANSFERASE 7 IU/L (0-55); ALBUMIN 2.7 g/dL (3.5-5.0); ALKALINE PHOSPHATASE 108 IU/L (40-150); ANION GAP 14.4 mmol/L (8-16); BLOOD UREA NITROGEN 15 mg/dL (7-26); BUN/CREATININE RATIO 22 (6-25); CALCIUM 9.1 mg/dL (8.4-10.2); CARBON DIOXIDE 27 mmol/L (22-29); CHLORIDE 101 mmol/L (98-107); CREATININE, SERUM 0.67 mg/dL (0.72-1.25); EST GLOMERULAR FILTRATION RATE > 60 ML/MIN (60-); GLUCOSE 90 mg/dL (74-118); POTASSIUM 3.4 mmol/L (3.5-5.1); SODIUM 139 mmol/L (136-145)
--- NOTE | 2018-09-16 07:03 | NUR ---
Report given to oncoming RN Neli,walking round done.
[2018-09-16] MEDS ORDERED: POTASSIUM CHLORIDE 20 MEQ TAB CR PO STA (07:25)
--- NOTE | 2018-09-16 07:26 | NUR ---
IM- progress note O/N: no events REVIEW OF SYSTEMS: Denies any fever, chills, sweats, nausea, vomiting, diarrhea, headache, chest pain, shortness of breath, back pain, skin rash, vision changes. PHYSICAL EXAMINATION VITAL SIGNS: Have been reviewed. GENERAL: A tired-appearing man resting in bed. HEENT: Anicteric. CARDIOVASCULAR: Normal S1 and S2. He has an irregular heart rate. LUNGS: Moderate breath sounds. ABDOMEN: Soft, nontender and nondistended. EXTREMITIES: He has trace edema. SKIN: Dry. PSYCHIATRIC: Flat affect. NEUROLOGICAL: Alert and oriented times 3. Moving all extremities. LABS: Reviewed. MEDICATIONS: Reviewed. ASSESSMENT: This is a 68-year-old man with: 1. Severe anemia and leukopenia. 2. Hypokalemia. 3. Hyperbilirubinemia. 4. Sigmoid diverticulitis. 5. Atrial fibrillation with rapid ventricular response. 6. Parkinson disease. 7. BPH. 8. Former smoker. 9. Hypertension. 10. Hyperlipidemia. PLAN 1. He is status post 3 units of packed red blood cells. 2. He is status post Neupogen. 3. Continue prophylaxis with cefepime in the setting of neutropenia. 4. He is on amiodarone for atrial fibrillation and also on metoprolol. 5. He did receive a dose of vancomycin, and his potassium was also replaced. 6. All his cell counts have started to improve. 7. Replace potassium this morning again. 8. Follow up labs and recommendations. 9. Monitor closely in the ICU. 10. Prophylaxis. Will use SCD and Pepcid. Critical care time more than 35 minutes. 09/14 cont AV kayla; f/u blood counts; 09/15 check labs; on coumadin and amio. inr increasing. 09/16 Hypokalemia- replace; pancytopenic; inr low. Sean Mcallister MD, PhD.
[2018-09-16 07:35] LABS: BAND NEUTROPHILS % (MANUAL) 2 %; EOSINOPHILS % (MANUAL) 7 % (0-7); LYMPHOCYTES % (MANUAL) 52 % (19-48); MONOCYTES % (MANUAL) 27 % (3.4-9.0); NEUTROPHILS % (MANUAL) 12 % (40-74)
[2018-09-16 07:38] LABS: PLATELET ESTIMATE ADEQUATE; PLATELET MORPHOLOGY COMMENT NORMAL; RBC MORPHOLOGY COMMENT ABNORMAL
[2018-09-16 07:39] LABS: POIKILOCYTOSIS SLIGHT; POLYCHROMASIA FEW
[2018-09-16 07:40] LABS: ANISOCYTOSIS MODERATE
[2018-09-16 07:42] LABS: HYPOCHROMASIA SLIG; ROULEAU FEW
[2018-09-16] MEDS: MAGNESIUM OXIDE 400 MG TAB PO SCH ×2 (08:53→16:26)
[2018-09-16] MEDS: AMIODARONE HCL 200 MG TAB PO SCH (08:53)
[2018-09-16] MEDS: CARBIDOPA/LEVODOPA 25/100 TAB PO SCH ×3 (08:53→20:35)
[2018-09-16] MEDS: METOPROLOL SUCCINATE 50 MG TAB XL PO SCH (08:53)
[2018-09-16] MEDS: FAMOTIDINE 20 MG TAB PO SCH (08:53)
[2018-09-16] MEDS: WARFARIN SOD 2.5 MG TAB PO SCH (16:26)
--- NOTE | 2018-09-16 17:47 | NUR ---
ARRIVED VIA WC FROM IMCU, AA&OX3 AT THIS TIME, DENIES ANY PAIN OR DISCOMFORT, ORIENTED TO ROOM AND CALL LIGHT SYSTEM, CALL LIGHT WITHIN REACH
--- NOTE | 2018-09-16 18:41 | NUR ---
SITTING IN BED, VOICES NO NEEDS AT THIS TIME, CALL LIGHT WITHIN REACH
--- NOTE | 2018-09-16 19:12 | NUR ---
WALKING ROUNDS PERFORMED, RECEIVED PT SITTING ON SIDE OF BED, AAOX3, RR EVEN AND AND NON-LABORED, ON RA. NO S/SX OF DISTRESS NOTED. LEFT PT SITTING ON SIDE OF BED, BED IN LOW LOCKED POSITION, SIDE RAILS UPX2, CALL LIGHT AND PHONE WITHIN REACH.
[2018-09-16] MEDS: FINASTERIDE 5 MG TAB PO SCH (20:35)
[2018-09-17] VITALS: BP 104/65
[2018-09-17 04:00] VITALS: BP 109/62
[2018-09-17] MEDS: CEFEPIME 2 GM/NS 0.9% 100 ML 100 ML IV SCH (05:35)
[2018-09-17 05:39] LABS: BASOPHILS # (AUTO) 0.1 (0.0-0.1); BASOPHILS % 2.3 % (0.0-1.0); EOSINOPHILS # (AUTO) 0.2 (0.0-0.4); HEMATOCRIT 28.5 % (38.2-49.6); HEMOGLOBIN 9.7 g/dL (14.0-18.0); LYMPHOCYTES # (AUTO) 0.7 (1.0-3.2); LYMPHOCYTES % 34.7 % (18.0-39.1); MEAN CORPUSCULAR HEMOGLOBIN 31.4 pg (28-32); MEAN CORPUSCULAR VOLUME 92.2 fL (81-99); MONOCYTES # (AUTO) 0.7 (0.2-0.8); MONOCYTES % 31.9 % (4.4-11.3); NEUTROPHILS # (AUTO) 0.5 (2.1-6.9); NEUTROPHILS % 23.2 % (38.7-80.0); PLATELET COUNT 272 x10e3/uL (140-360); RED BLOOD COUNT 3.09 x10e6/uL (4.3-5.7)
[2018-09-17 07:03] VITALS: BP 96/56
[2018-09-17] MEDS ORDERED: COLACE100 MG PO (07:11)
[2018-09-17] MEDS ORDERED: AMIODARONE HCL200 MG PO (07:11)
[2018-09-17] MEDS ORDERED: COUMADIN2.5 MG PO (07:11)
--- NOTE | 2018-09-17 07:31 | NUR ---
Met with Dr. Mcallister. He stated the date of discharge is up to horse riding coach or instructor at this time. Will follow up on this. Dr. Mcallister also gave RX to CM for Enoxaparin to verify if insurance will cover. Will follow up on this.
[2018-09-17 07:55] LABS: BAND NEUTROPHILS % (MANUAL) 2 %; EOSINOPHILS % (MANUAL) 3 % (0-7); LYMPHOCYTES % (MANUAL) 51 % (19-48); MONOCYTES % (MANUAL) 11 % (3.4-9.0); NEUTROPHILS % (MANUAL) 31 % (40-74); PLATELET ESTIMATE ADEQUATE; PLATELET MORPHOLOGY COMMENT NORMAL; RBC MORPHOLOGY COMMENT NORMAL
[2018-09-17] MEDS: METOPROLOL SUCCINATE 50 MG TAB XL PO SCH (09:00)
[2018-09-17] MEDS: FAMOTIDINE 20 MG TAB PO SCH (10:12)
[2018-09-17] MEDS: CARBIDOPA/LEVODOPA 25/100 TAB PO SCH (10:12)
[2018-09-17] MEDS: AMIODARONE HCL 200 MG TAB PO SCH (10:12)
[2018-09-17] MEDS: MAGNESIUM OXIDE 400 MG TAB PO SCH (10:26)
[2018-09-17 10:28] VITALS: BP 96/56
[2018-09-17 10:29] VITALS: BP 96/56
--- NOTE | 2018-09-17 10:42 | NUR ---
Met with patient and discussed his Lovenox/Enoxaparin RX. His pharmacy is [facility] ([place]) [phone], fax [phone]. Called and spoke to pharmacist who requested RX be faxed and CM to then call back in 40 minutes for answer. RX successfully faxed.
[2018-09-17 11:38] VITALS: BP 108/55
--- NOTE | 2018-09-17 11:47 | NUR ---
Co-pay for Enoxaparin is 151.14. Notified patient and he stated he will be able to pay that. PATRICK called Dr. Mcallister and notified him. He stated pt can go home if ok with suture gauger. PATRICK notified Halina YOUNG and she has placed call to suture gauger.
--- NOTE | 2018-09-17 12:07 | NUR ---
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
[2018-09-17] MEDS ORDERED: WARFARIN SODIU2.5 MG PO (12:49)
[2018-09-18] MEDS ORDERED: WARFARIN SOD 2.5 MG TAB PO SCH (17:00)
== END 2018-09-17 13:18 | disposition home or self-care (01) | DRG 809 ==
LOC: ER 11:14 → ERHOLD 16:23 → ICU 16:31 → IMCU 09-14 14:15 → MED/SURG 09-16 17:37
PROVIDERS: ADMIT Internal Medicine; ATTEND Internal Medicine
PROC: 30233N1 Transfusion of Nonautologous Red Blood Cells into Peripheral Vein, Percutaneous Approach (ICD-10-PCS; principal; 2018-09-12)
PROC: 30233N1 Transfusion of Nonautologous Red Blood Cells into Peripheral Vein, Percutaneous Approach (ICD-10-PCS; 2018-09-15)
DX: D61.818 Other pancytopenia (principal); K57.32 Diverticulitis of large intestine without perforation or abscess without bleeding; D62 Acute posthemorrhagic anemia; D72.819 Decreased white blood cell count, unspecified; R55 Syncope and collapse; I48.2 Chronic atrial fibrillation; D69.6 Thrombocytopenia, unspecified; I10 Essential (primary) hypertension; E78.5 Hyperlipidemia, unspecified; Z82.49 Family history of ischemic heart disease and other diseases of the circulatory system; Z79.01 Long term (current) use of anticoagulants; G20 Parkinson's disease; N40.0 Benign prostatic hyperplasia without lower urinary tract symptoms; Z87.891 Personal history of nicotine dependence; E87.6 Hypokalemia; E80.6 Other disorders of bilirubin metabolism; E78.00 Pure hypercholesterolemia, unspecified; I25.10 Atherosclerotic heart disease of native coronary artery without angina pectoris
CPT/HCPCS: 36415; 71045; 74177; 80048; 80053; 80061; 81001; 82550; 82553; 82607; 82728; 82746; 83540; 83605; 83735; 83880; 84443; 84466; 84484; 85025; 85610; 85730; 86850; 86900; 86920; 87040; 87086; 93005; 96367; 97139; 99284; J1442; J1940; J3370; J3480; J7030; J7050; P9016; Q9967

== ENCOUNTER → 2019-03-13 | Outpatient (CLI) | payer MEDICARE, OTHER ==
[~2019-03-13] MED LIST changes: +AMIODARONE HCL200 MG PO; +CARBIDOPA-LEVO1 EAC1 PO; +COLACE100 MG PO; +COUMADIN2.5 MG PO; +FINASTERIDE5 MG PO; +GEMFIBROZIL600 MG PO; +ONDANSETRON HCL4 MG PO; +PANTOPRAZOLE SO40 MG PO; +WARFARIN SODIU2.5 MG PO; +WARFARIN SODIUM3 MG PO
== END ==
LOC: RAD 13:40
PROVIDERS: ATTEND Family Medicine
DX: R22.31 Localized swelling, mass and lump, right upper limb (principal); W01.198A Fall on same level from slipping, tripping and stumbling with subsequent striking against other object, initial encounter
CPT/HCPCS: 93971